=== PATIENT | male | born 1990 | race Caucasian/White ===

== ENCOUNTER 2018-07-12 09:00 | Emergency (ER) | payer OTHER ==
[~2018-07-12] VITALS: Ht 185.4 cm; Wt 97.5 kg
[2018-07-12] MEDS ORDERED: CENTRUM SILVER1 EAC4 PO (09:06)
[2018-07-12 10:42] VITALS: BP 122/82
== END 2018-07-12 10:45 | disposition home or self-care (01) ==
LOC: M.ERS 09:00
DX: S82.831A Other fracture of upper and lower end of right fibula, initial encounter for closed fracture (principal); Z88.2 Allergy status to sulfonamides; W00.0XXA Fall on same level due to ice and snow, initial encounter; Y93.89 Activity, other specified; Y92.89 Other specified places as the place of occurrence of the external cause; Y99.8 Other external cause status